=== PATIENT | female | born 1985 | race Caucasian/White ===

== ENCOUNTER → 2017-04-16 08:34 | Outpatient (CLI) | payer MEDICAID | END | disposition home or self-care (01) | LOC: D.US 08:34 | DX: R10.9 Unspecified abdominal pain (principal) ==

== ENCOUNTER → 2017-06-11 16:10 | Outpatient (CLI) | payer MEDICAID | END | disposition home or self-care (01) | LOC: D.RAD 16:10 | DX: M25.511 Pain in right shoulder (principal); M54.16 Radiculopathy, lumbar region ==

== ENCOUNTER → 2017-07-01 13:49 | Outpatient (CLI) | payer MEDICAID ==
[~2017-07-01 13:49] MED LIST: BACTRIM 400-801 TAB PO; BUSPAR 15 MG TA15 MG PO; CAMILA0.35 MG PO; FLUTICASONE PRO16 GM; HYDROCODON-ACE1 EAC7 PO; HYDROCODONE-APA1 TAB PO; HYDROXYZINE HCL50 MG PO; LEVOTHYROXINE50 MCG PO; LEVSIN/ANASP0.125 MG PO; NEURONTIN 300300 MG PO; NEXIUM40 MG PO; PROAIR HFA8.5 GM INH; REMERON30 MG PO; RISPERDAL4 MG PO; TOPAMAX100 MG PO; ULTRAM50 MG PO; ZANTAC300 MG PO; ZOFRAN8 MG PO; [UNRECOGNIZED DRUG - OTHER]; birth control PO
[2017-08-28 17:57] VITALS: BMI 35.8
== END | disposition home or self-care (01) ==
LOC: D.MRI 13:49
DX: S43.51XA Sprain of right acromioclavicular joint, initial encounter (principal)

== ENCOUNTER 2017-07-05 01:45 | Emergency (ER) | payer MEDICAID ==
[2017-07-05 03:09] LABS: APPEARANCE CLOUDY (CLEAR); COLOR YELLOW (YELLOW)
[2017-07-05 03:10] LABS: BILIRUBIN NEGATIVE (NEGATIVE); GLUCOSE NEGATIVE (NEGATIVE); KETONE NEGATIVE (NEGATIVE); NITRITE POSITIVE (NEGATIVE); PROTEIN 1+ mg/dL (NEGATIVE); UROBILINOGEN NORMAL (NORMAL)
[2017-07-05 03:16] LABS: AMORPHOUS SEDIMENT <1+ /lpf (NONE SEEN); BACTERIA MANY /hpf (NONE SEEN); EPITHELIAL CELLS NSEEN /hpf (0-5); GRANULAR CAST 0-5 /lpf (NONE SEEN); RED CELLS - URINE 0-5 /hpf (0-5)
[2017-08-27] MEDS ORDERED: FLUTICASONE PRO16 GM (14:43)
[2017-08-28] MEDS ORDERED: BACTRIM 400-801 TAB PO (08:19)
[2017-08-28] MEDS ORDERED: CAMILA0.35 MG PO (08:20)
[2017-08-28 17:57] VITALS: BMI 35.8
== END 2017-07-05 03:31 | disposition home or self-care (01) ==
LOC: D.ER 01:45
PROVIDERS: Family Medicine
DX: S39.012A Strain of muscle, fascia and tendon of lower back, initial encounter (principal); X58.XXXA Exposure to other specified factors, initial encounter; Y93.89 Activity, other specified; Y92.029 Unspecified place in mobile home as the place of occurrence of the external cause; N39.0 Urinary tract infection, site not specified

== ENCOUNTER 2017-07-12 20:54 | Emergency (ER) | payer MEDICAID ==
[2017-07-12 21:32] LABS: APPEARANCE CLEAR (CLEAR); BILIRUBIN NEGATIVE (NEGATIVE); COLOR YELLOW (YELLOW); GLUCOSE NEGATIVE (NEGATIVE); KETONE NEGATIVE (NEGATIVE); NITRITE POSITIVE (NEGATIVE); PROTEIN NEGATIVE (NEGATIVE); UROBILINOGEN NORMAL (NORMAL)
[2017-07-12 21:34] LABS: BACTERIA MODERATE /hpf (NONE SEEN); RED CELLS - URINE OCC /hpf (0-5); WHITE CELLS - URINE 0-5 /hpf (0-5)
[2017-08-27] MEDS ORDERED: FLUTICASONE PRO16 GM (14:43)
[2017-08-28] MEDS ORDERED: BACTRIM 400-801 TAB PO (08:19)
[2017-08-28] MEDS ORDERED: CAMILA0.35 MG PO (08:20)
[2017-08-28 17:57] VITALS: BMI 35.8
== END 2017-07-12 22:15 | disposition home or self-care (01) ==
LOC: D.ER 20:54
PROVIDERS: Emergency Medicine
DX: N39.0 Urinary tract infection, site not specified (principal); F17.200 Nicotine dependence, unspecified, uncomplicated

== ENCOUNTER → 2017-07-16 12:39 | Outpatient (CLI) | payer MEDICAID ==
[2017-08-28 17:57] VITALS: BMI 35.8
== END | disposition home or self-care (01) ==
LOC: D.MRI 12:39
DX: S43.51XA Sprain of right acromioclavicular joint, initial encounter (principal)

== ENCOUNTER → 2017-07-18 13:08 | Outpatient (CLI) | payer MEDICAID ==
[2017-08-28 17:57] VITALS: BMI 35.8
== END | disposition home or self-care (01) ==
LOC: D.US 13:08
DX: N18.3 Chronic kidney disease, stage 3 (moderate) (principal)

== ENCOUNTER → 2017-07-31 10:11 | Outpatient (CLI) | payer MEDICAID ==
[2017-08-28 17:57] VITALS: BMI 35.8
== END | disposition home or self-care (01) ==
LOC: D.CT 07-26 11:00
DX: N13.30 Unspecified hydronephrosis (principal)

== ENCOUNTER → 2017-08-02 17:13 | Outpatient (CLI) | payer MEDICAID ==
[2017-08-28 17:57] VITALS: BMI 35.8
== END | disposition home or self-care (01) ==
LOC: D.LABREF 17:13
DX: N39.0 Urinary tract infection, site not specified (principal)

== ENCOUNTER 2017-08-06 11:42 | Day surgery (SDC) | payer MEDICAID ==
[~2017-08-06] VITALS: Ht 162.6 cm; Wt 93.9 kg
[2017-08-06] MEDS ORDERED: HYDROXYZINE HCL50 MG PO (12:17)
[2017-08-06] MEDS ORDERED: ZANTAC300 MG PO (12:17)
[2017-08-06] MEDS ORDERED: REMERON30 MG PO (12:18)
[2017-08-06] MEDS ORDERED: ULTRAM50 MG PO (12:18)
[2017-08-06] MEDS ORDERED: ZOFRAN8 MG PO (12:18)
[2017-08-06] MEDS ORDERED: BUSPAR 15 MG TA15 MG PO (12:19)
[2017-08-06] MEDS ORDERED: RISPERDAL4 MG PO (12:19)
[2017-08-06] MEDS ORDERED: LEVOTHYROXINE50 MCG PO (12:19)
[2017-08-06] MEDS ORDERED: NEURONTIN 300300 MG PO (12:20)
[2017-08-06] MEDS ORDERED: LEVSIN/ANASP0.125 MG PO (12:20)
[2017-08-06] MEDS ORDERED: TOPAMAX100 MG PO (12:21)
[2017-08-06] MEDS ORDERED: NEXIUM40 MG PO (12:22)
[2017-08-06 12:40] VITALS: BP 109/67; Ht 162.6 cm; Wt 93.9 kg
[2017-08-06 12:56] LABS: HCG URINE NEGATIVE (NEGATIVE)
[2017-08-06 13:38] LABS: HEMATOCRIT 40.2 % (36.0-48.0); HEMOGLOBIN 13.4 g/dL (12-16); MCHC 33.3 g/dL (31.0-37.0); MCV 90.1 fL (80.0-100.0); MEAN PLATELET VOLUME 10.3 fL (7.4-10.4); RBC 4.46 10x6/uL (4.00-5.40); RDW 13.7 % (11.5-14.5)
--- NOTE | 2017-08-06 19:11 | NUR ---
IV DC WITH CATHER TIP INTACT
--- NOTE | 2017-08-07 14:29 | OP ---
PATIENT NAME: MARCUS MCALLISTER MEDICAL RECORD: [id number] :83 LOCATION:D.[facility] ADMISSION DATE: SURGEON: SKIP ROBLES MD DATE OF OPERATION: 08/06/2017 SURGEON: Skip Robles MD ANESTHESIA: General anesthesia by Dr. Silva. PREOPERATIVE DIAGNOSIS: Right ureteral obstruction by 7 mm mid ureteral stone, 10-mm right lower pole renal stone, and renal failure. PROCEDURES: Cystoscopy, right retrograde pyelogram, right ureteral stent insertion 6-Albanian x 24 cm without string attached. FINDINGS: Radiolucent stones. Stone position noted only by constriction of the dye column on retrograde pyelogram. ESTIMATED BLOOD LOSS: None. COMPLICATIONS: None. CLINICAL HISTORY: This is a 32-year-old female, who was referred by Dr. Edouard Durant, nephrology. When she was being investigated for renal failure, she was found on ultrasound to have right hydronephrosis. A CT scan of the abdomen and pelvis showed stones in the right kidney with a 7 mm stone in the right mid ureter causing hydronephrosis proximally. She comes today to have the right kidney decompressed by insertion of a ureteral stent. My plan had been to perform a percutaneous nephrolithotomy in the future to remove both the lower pole renal stone as well as the ureteral stone. Her creatinine is 1.32. She is not allergic to any medication. We gave her Ancef 2 grams IV neonatal nurse practitioner to the OR. DESCRIPTION OF PROCEDURE: The patient was given induction of general anesthesia. She was then placed in dorsal lithotomy position and prepped and draped. Fluoroscopy did not reveal any obvious radiodense stones. There was a possible radiodensity but when we performed the retrograde pyelogram, this radiodensity was not anywhere near the urinary system. Cystoscopy was performed using a 20-Albanian cystoscope with 30-degree lens. She has single ureteral orifices. No bladder tumors were seen. An open-ended 5-Albanian ureteral catheter was inserted into the urethra and diluted contrast was used to perform a retrograde pyelogram. At about the mid ureteral level, we could see distal to the narrow point in the ureter strong column of contrast. Proximal to this was very diluted column of contrast and hydronephrotic ureter and kidney. The stone itself could not be seen. Also, the stone in the kidney could not be seen on fluoroscopy. This leads me to suspect that it may be a uric acid as this is characteristic of uric acid stones. A Sensor wire was placed through the lumen of the ureteral catheter and up into the renal pelvis. The ureteral catheter was then removed entirely. Over the wire, we inserted a 6-Albanian x 24 cm ureteral stent. The string on the distal end of the stent has been removed. Once the stent was in correct position, we withdrew the wire to allow the proximal end to coil. The wire was then removed entirely. The distal end of the stent was pushed into the bladder using the pusher. The bladder was then emptied through the cystoscope. Because she may have uric acid stones, I am going to start her on urinary alkalinization using potassium citrate 10 mEq p.o. t.i.d. She will come to my office later this week to have her urine pH check. OPERATIVE REPORT [id number] MARCUS MCALLISTER Ideally we want the urine pH to be above 6.5 in order to dissolve uric acid stones. Also, I have given her a prescription for tamsulosin 0.4 mg p.o. at bedtime times 30 tablets, to help alleviate any ureteral spasms from the placement of the stent. Finally, she has a script for [place] 5/325, 30 tablets with no refills. TRANSINT:[id number] Voice Confirmation ID: [id number] DOCUMENT ID: [id number] SKIP ROBLES MD at 1429 CC: [id number] DICTATION DATE: 08/06/171813 COMMUNITY SERVICE REPRESENTATIVE: 08/06/172109 [facility] 08/06/17 [id number] [place] [address]
[2017-08-27] MEDS ORDERED: FLUTICASONE PRO16 GM (14:43)
[2017-08-28] MEDS ORDERED: BACTRIM 400-801 TAB PO (08:19)
[2017-08-28] MEDS ORDERED: CAMILA0.35 MG PO (08:20)
== END 2017-08-06 19:36 | disposition home or self-care (01) ==
LOC: D.OPS 11:42 → D.PAN 14:15 → D.OPS 14:15
PROVIDERS: Anesthesiology; Urology
DX: N20.2 Calculus of kidney with calculus of ureter (principal); F17.200 Nicotine dependence, unspecified, uncomplicated; E03.9 Hypothyroidism, unspecified; J45.909 Unspecified asthma, uncomplicated; K21.9 Gastro-esophageal reflux disease without esophagitis; Z01.812 Encounter for preprocedural laboratory examination

== ENCOUNTER 2017-08-08 08:06 | Day surgery (SDC) | payer MEDICAID ==
[~2017-08-08] VITALS: Ht 165.1 cm; Wt 93.0 kg
[~2017-08-08 08:06] MED LIST changes: -BACTRIM 400-801 TAB PO; -CAMILA0.35 MG PO; -FLUTICASONE PRO16 GM; -HYDROCODON-ACE1 EAC7 PO; -HYDROCODONE-APA1 TAB PO; -PROAIR HFA8.5 GM INH; -[UNRECOGNIZED DRUG - OTHER]; -birth control PO
[2017-08-08] MEDS ORDERED: HYDROCODON-ACE1 EAC7 PO (09:07)
[2017-08-08] MEDS ORDERED: [UNRECOGNIZED DRUG - OTHER] (09:20)
[2017-08-08] MEDS ORDERED: birth control PO (09:21)
[2017-08-08] MEDS ORDERED: PROAIR HFA8.5 GM INH (09:27)
[2017-08-08 09:28] VITALS: BP 107/74; Ht 165.1 cm; Wt 93.0 kg
[2017-08-08 09:43] LABS: HCG URINE NEGATIVE (NEGATIVE)
[2017-08-08] MEDS ORDERED: HYDROCODONE-APA1 TAB PO (13:51)
--- NOTE | 2017-08-08 15:32 | NUR ---
1530 DISCHARGE INSTRUCTIONS COMPLETE. PT HAS NO QUESTIONS OR CONCERNS AT THIS TIME. NORCO PRESCRIPTION GIVEN. PT ESCORTED OUT BY VOLUNTEER.
[2017-08-27] MEDS ORDERED: FLUTICASONE PRO16 GM (14:43)
[2017-08-28] MEDS ORDERED: BACTRIM 400-801 TAB PO (08:19)
[2017-08-28] MEDS ORDERED: CAMILA0.35 MG PO (08:20)
--- NOTE | 2017-09-09 17:58 | OP ---
PATIENT NAME: MARCUS MCALLISTER MEDICAL RECORD: [id number] :83 LOCATION:[facility] ADMISSION DATE: SURGEON: LEXIE ELIZONDO MD DATE OF OPERATION: 08/08/2017 DATE OF OPERATION: PREOPERATIVE DIAGNOSES: Right shoulder impingement syndrome with acromioclavicular arthritis and rotator cuff tear. POSTOPERATIVE DIAGNOSES: Right shoulder impingement syndrome with acromioclavicular arthritis and rotator cuff tear. PROCEDURES: 1. Arthroscopic rotator cuff repair of the right shoulder. 2. Arthroscopic distal clavicle excision, right shoulder - 1 cm through separate incision. 3. Arthroscopic subacromial decompression, acromioplasty and bursectomy. SURGEON: Lexie Elizondo MD ANESTHESIA: General. INTRAOPERATIVE COMPLICATIONS: None. SUMMARY OF PATHOLOGIC FINDINGS: As photographed intraoperatively, the patient had a full thickness rotator cuff tear at the anterior aspect of the supraspinatus tendinous footprint. OPERATIVE SUMMARY IN DETAIL: After obtaining the appropriate preoperative orthopedic surgery consent as well as anesthetic consultation, evaluation and clearance, the patient was brought to the operating room and was placed on the operating table in supine position. After general laryngeal mask airway was administered, the patient was placed in a left lateral decubitus position. All pressure points were well padded to include down leg peroneal nerve pad as well as axillary roll. The patient was held firmly to the operating table using the vacuum pack suction system. Right upper extremity and shoulder were prepped and draped in routine sterile fashion. The arm was held in the [employer] traction boom at 30 degrees of forward flexion, 30 degrees of abduction, 10 pounds of traction laterally. Arthroscopy was established in the glenohumeral joint from posterior portal. Anterior portal was established in the anterior safe interval. Diagnostic arthroscopy did reveal the patient to have a rotator cuff tear as above. Transrotator cuff portal was created for debridement of the nonviable rotator cuff fibers and to begin decortication of the supraspinatus tendinous footprint. The attention was then turned to the subacromial space. [place] tissue ablation system was utilized to denude the undersurface of the acromion of all soft tissue elements and released the coracoacromial ligament. A 5-0 barrel bur was used to perform acromioplasty at the level of acromioclavicular joint and then through a separate arthroscopic portal anteriorly, distal clavicle excision was done for 1 cm and the osteophytes were taken down from the medial edge of the acromion. Lastly, after further decortication of the supraspinatus tendinous footprint, a single #2 FiberTape was placed in an inverted mattress system and then anchored laterally with a 5.5 SwiveLock from [employer]. Having completed this, arthroscopy portals were closed in routine interrupted fashion using 4-0 Prolene. Sterile dressings were OPERATIVE REPORT [id number] MARCUS MCALLISTER applied. The patient was awakened, taken to recovery room in stable condition. All final needle and sponge counts were correct. TRANSINT:[id number] Voice Confirmation ID: [id number] DOCUMENT ID: [id number] MIKHAIL INTERIANO, LEXIE CURIEL at 1758 CC: [id number] DICTATION DATE: 09/09/17 1317 [employer] TECHNICIAN: 09/09/17 1416 [facility] 08/08/17 [id number] [place] [address]
== END 2017-08-08 15:33 | disposition home or self-care (01) ==
LOC: D.OPS 08:06 → D.PAN 11:30 → D.OPS 11:30 → D.PAN 12:20 → D.OPS 13:30 → D.PAN 13:30 → D.OPS 15:33
PROVIDERS: Orthopaedic Surgery
DX: M75.101 Unspecified rotator cuff tear or rupture of right shoulder, not specified as traumatic (principal); F17.200 Nicotine dependence, unspecified, uncomplicated; J45.909 Unspecified asthma, uncomplicated; I10 Essential (primary) hypertension; E03.9 Hypothyroidism, unspecified; K21.9 Gastro-esophageal reflux disease without esophagitis; M19.011 Primary osteoarthritis, right shoulder; M25.811 Other specified joint disorders, right shoulder; Z01.812 Encounter for preprocedural laboratory examination

== ENCOUNTER → 2017-08-12 17:51 | Outpatient (CLI) | payer MEDICAID ==
[2017-08-08 09:28] VITALS: BMI 34.1
[~2017-08-12 17:51] MED LIST changes: +BACTRIM 400-801 TAB PO; +CAMILA0.35 MG PO; +FLUTICASONE PRO16 GM; +HYDROCODON-ACE1 EAC7 PO; +HYDROCODONE-APA1 TAB PO; +PROAIR HFA8.5 GM INH; +[UNRECOGNIZED DRUG - OTHER]; +birth control PO
== END | disposition home or self-care (01) ==
LOC: D.LABREF 17:51
DX: N39.0 Urinary tract infection, site not specified (principal)

== ENCOUNTER → 2017-08-26 12:08 | Outpatient (CLI) | payer MEDICAID ==
[2017-08-08 09:28] VITALS: BMI 34.1
== END | disposition home or self-care (01) ==
LOC: D.CT 12:08
DX: N20.0 Calculus of kidney (principal)

== ENCOUNTER 2017-08-28 08:34 | Day surgery (SDC) | payer MEDICAID ==
[2017-08-27 15:46] LABS: HEMATOCRIT 41.6 % (36.0-48.0); HEMOGLOBIN 13.8 g/dL (12-16); MCH 29.8 pg (26.0-34.0); MCHC 33.2 g/dL (31.0-37.0); MCV 89.8 fL (80.0-100.0); MEAN PLATELET VOLUME 9.7 fL (7.4-10.4); RBC 4.63 10x6/uL (4.00-5.40); RDW 14.3 % (11.5-14.5); WBC 7.2 10x3/uL (4.8-10.8)
[~2017-08-28] VITALS: Ht 165.1 cm; Wt 97.7 kg
--- NOTE | ~2017-08-28 | HEMODYNAMI ---
PATIENT:MARCUS MCALLISTER MEDICAL RECORD: [id number] : 83 LOCATION:[facility] ADMISSION DATE: 08/28/17 Generatedon:08/28/201710:45 Patient name: MARCUS MCALLISTER Patient #: [id number] SSN: DO B: 1985 Date of study: 08/28/2017 Page: Of Hemodynamic Procedure Report Patient Data Patient Demographics Procedure consent was obtained First Name: MARCUS Gender: Female Last Name: ESVIN : 1985 [facility] Initial: JESSICA Age: 32 year(s) Patient #: [id number] Race: Unknown Additional ID: [id number] Contact details [address]: [address] [place] [address] State: [place] City: [place] Zip code: [address] Admission Admission Data Admission Date: 08/28/2017 Admission Time: 8:34 Procedure Procedure Types Cath Procedure Peripheral Cath Diagnostic Procedure Miscellaneous Procedure Description Procedure Date Procedure Date: 08/28/2017 Procedure Start Time: 9:25 Procedure Staff Name Function Gino Lackey MD Performing Physician Agustín Multani RT Monitor Liza Maurice RT Scrub Sarah Cates RN Nurse Procedure Data Cath Procedure Fluoroscopy Diagnostic fluoroscopy Total fluoroscopy Time: time: 20.6 min 20.6 min Diagnostic fluoroscopy Total fluoroscopy dose: dose: 1247 mGy 1247 mGy Contrast Material Contrast Material Type Amount (ml) Isovue 300 20 Procedure Medications Medication Administration Route Dosage Heparin Flush Bag added to field 1 bags (1000units/500ml NS) Lidocaine 1% added to field 20 Versed I.V. 1 mg Fentanyl I.V. 50 mcg Versed I.V. 1 mg Fentanyl I.V. 50 mcg Versed I.V. 1 mg Fentanyl I.V. 50 mcg Versed I.V. 1 mg Fentanyl I.V. 50 mcg Versed I.V. 1 mg Fentanyl I.V. 50 mcg Versed I.V. 1 mg Fentanyl I.V. 50 mcg Versed I.V. 2 mg Hemodynamics Rest Heart Rate: 81 (bpm) Snapshots Pre Cath Intra NCS Post Cath Vital Signs Time Heart Resp SPO2 etCO2 NIBP (mmHg) Rhythm Pain Sedation Rate (ipm) (%) (mmHg) Status Level (bpm) 9:07:34 83 11 98 34.8 No Cuff NSR 0 (11) 10(A) , No pain 9:11:34 86 14 98 34.8 No Cuff NSR 0 (11) 10(A) , No pain 9:15:33 82 11 97 35.5 No Cuff NSR 0 (11) 10(A) , No pain 9:19:53 82 11 97 38.6 128/81(107) NSR 0 (11) 10(A) , No pain 9:24:03 82 12 98 37.1 131/86(103) NSR 0 (11) 10(A) , No pain 9:28:11 90 10 97 37.8 133/84(113) NSR 0 (11) 10(A) , No pain 9:32:23 90 12 97 37.8 133/85(99) NSR 0 (11) 10(A) , No pain 9:36:31 97 7 96 37.1 135/94(115) NSR 0 (11) 10(A) , No pain 9:41:30 101 5 97 37.8 Measuring NSR 0 (11) 10(A) , No pain 9:42:33 102 7 97 39.3 130/103(125) NSR 0 (11) 10(A) , No pain 9:46:41 96 5 95 36.3 129/106(121) NSR 0 (11) 10(A) , No pain 9:51:40 105 6 96 45.4 Measuring NSR 0 (11) 10(A) , No pain 9:53:04 98 6 97 45.4 Time NSR 0 (11) 10(A) Exceeded , No pain 9:55:18 107 6 97 42.4 132/99(127) NSR 0 (11) 10(A) , No pain 10:00:17 115 5 95 47.7 Measuring NSR 0 (11) 10(A) , No pain 10:00:21 109 5 95 47.7 148/132(143) NSR 0 (11) 10(A) , No pain 10:02:42 114 5 95 46.1 141/128(136) NSR 0 (11) 10(A) , No pain 10:05:16 107 7 97 43.1 139/109(115) NSR 0 (11) 10(A) , No pain 10:09:22 107 8 97 42.4 133/108(127) NSR 0 (11) 10(A) , No pain 10:14:20 105 9 97 42.3 Measuring NSR 0 (11) 10(A) , No pain 10:14:25 103 9 97 42.3 144/118(141) NSR 0 (11) 10(A) , No pain 10:18:34 103 6 98 41.6 140/101(122) NSR 0 (11) 10(A) , No pain 10:23:33 102 12 98 39.3 Measuring NSR 0 (11) 10(A) , No pain 10:23:56 104 11 98 35.5 156/112(144) NSR 0 (11) 10(A) , No pain 10:28:06 98 10 99 40.8 149/112(129) NSR 0 (11) 10(A) , No pain 10:32:16 99 16 41.6 151/103(115) NSR 0 (11) 10(A) , No pain 10:36:15 0 No Cuff NSR 0 (11) 10(A) , No pain 10:40:15 0 No Cuff NSR 0 (11) 10(A) , No pain Medications Time Medication Route Dose Verified Delivered Reason Notes Effect iveness by by 9:19:17 Heparin Flush added 1 Sarah Sarah Bag to bags Darryn Cates RN (1000units/500ml field RAMOS NS) 9:19:31 Lidocaine 1% added 20ml Sarah Gino to vial MD field RACHEL Reaves 9:25:51 Versed I.V. 1 mg Gino Smith for Darryn Lackey RN sedation 9:26:02 Fentanyl I.V. 50 Gino Sarah for mcg Darryn Lackey RN sedation 9:28:15 Versed I.V. 1 mg Gino Sarah for Darryn Lackey RN sedation 9:28:22 Fentanyl I.V. 50 Gino Sarah for mcg Darryn Lackey RN sedation 9:31:22 Versed I.V. 1 mg Gino Sarah for Burda, Darryn RN sedation 9:31:32 Fentanyl I.V. 50 Gino Sarah for mcg Burda, Darryn RN sedation 9:38:08 Versed I.V. 1 mg Gino Sarah for Burda, Darryn RN sedation 9:38:18 Fentanyl I.V. 50 Gino Sarah for mcg Burda, Darryn RN sedation 9:44:17 Versed I.V. 1 mg Gino Sarah for Burda, Darryn RN sedation 9:44:25 Fentanyl I.V. 50 Gino Sarah for mcg Burda, Darryn RN sedation 9:54:39 Versed I.V. 1 mg Gino Sarah for Burda, Darryn RN sedation 9:54:47 Fentanyl I.V. 50 Gino Sarah for mcg Burda, Darryn RN sedation 10:10:10 Versed I.V. 2 mg Gino Sarah for Burda, Darryn RN sedation Procedure Log Time Note 8:47:44 Agustín Multani RT (R) (CV) sent for patient. Start room use. 8:50:35 Time tracking: Regular hours 8:50:41 Plan of Care:Hemodynamics will remain stable., Cardiac rhythm will remain stable., Comfort level will be maintained., Respiratory function will remain adequate., Patient/ family verbilizes understanding of procedure., Procedure tolerated without complication., Recovers from procedure without complications.. 8:50:49 Patient received from Outpatients to IR Alert and oriented. Tansferred to table in Prone position. 8:50:50 Correct patient and procedure confirmed by team. 8:50:52 Signed procedure consent form obtained from patient. 8:50:53 ECG and BP/O2 sat monitors applied to patient. 8:50:54 Full Disclosure recording started 8:50:56 - 8:50:59 H&P Date Dictated: 08/28/2017 Within 30 days and on chart.. 8:51:00 Pre-procedure instructions explained to patient. 8:51:00 Pre-op teaching completed and patient verbalized understanding. 8:51:02 Family in waiting room. 8:51:06 Patient NPO since Midnight. 8:51:10 Is patient on blood thinner?No 8:51:11 Patient diabetic? No. 8:51:12 - 8:51:13 ----Pre-sedation anethsthesia assessment.---- 8:51:19 Snore? Yes 8:52:04 Sleep apnea? No 8:52:06 Deviated septum? No 8:52:09 Opens mouth fully? Yes 8:52:11 Sticks out tongue? Yes 8:52:16 Airway obstruction? No ? 8:52:18 Dentures? No ? 8:52:33 Patient pain scale 0/10 no pain. 8:52:39 IV patent on arrival in left forearm with 0.9% NaCl at O. 8:52:41 Sharps counted by scrub and verified by R.N. 8:52:41 Alarms reviewed by R. N. 8:52:48 Right abdomen area was prepped with chlora-prep and draped in sterile fashion 8:53:07 Use device set IR Diagnostic 8:53:16 Bag Decanter (2002S) opened to sterile field. 8:53:16 Sterile Angiographic Pack opened to sterile field. 8:53:25 KIT, INTRODUCER ACCUSTICK II W/C opened to sterile field. 9:06:44 Vital chart was started 9:06:46 Baseline sample Acquired. 9:19:17 Heparin Flush Bag (1000units/500ml NS) 1 bags added to field was administered by Sarah Cates RN; ; 9:19:31 Lidocaine 1% 20ml vial added to field was administered by Gino Lackey MD; ; 9:23:08 Physician arrived 9:23:08 Final Timeout: patient, procedure, and site verified with staff and physician. All members of the team are in agreement. 9:23:09 --------ALL STOP TIME OUT------ 9:23:16 Sedation plan: IV Moderate Sedation Medication:Versed, Fentanyl 9:25:17 Procedure started. 9:25:22 Local anesthetic to Abdominal area with Lidocaine 1% by Agustín GARRETT (R) ().INITIAL ACCESS ONLY 9:25:51 Versed 1 mg I.V. was administered by Sarah Cates RN; for sedation; 9:26:02 Fentanyl 50 mcg I.V. was administered by Sarah Cates RN; for sedation ; 9:28:15 Versed 1 mg I.V. was administered by Sarah Cates RN; for sedation; 9:28:22 Fentanyl 50 mcg I.V. was administered by Sarah Cates RN; for sedation ; 9:28:23 CHIBA 22 X 15 needle opened to sterile field. 9:31:22 Versed 1 mg I.V. was administered by Sarah Cates RN; for sedation; 9:31:32 Fentanyl 50 mcg I.V. was administered by Sarah Cates RN; for sedation ; 9:38:08 Versed 1 mg I.V. was administered by Saarh Cates RN; for sedation; 9:38:18 Fentanyl 50 mcg I.V. was administered by Sarah Cates RN; for sedation ; 9:43:02 KIT, INTRODUCER ACCUSTICK II W/C opened to sterile field. 9:44:17 Versed 1 mg I.V. was administered by Sarah Cates RN; for sedation; 9:44:25 Fentanyl 50 mcg I.V. was administered by Sarah Cates RN; for sedation ; 9:54:39 Versed 1 mg I.V. was administered by Sarah Cates RN; for sedation; 9:54:47 Fentanyl 50 mcg I.V. was administered by Sarah Cates RN; for sedation ; 9:55:27 CHIBA 22 X 15 needle opened to sterile field. 10:00:34 EV3 NITINOL .018 80CM guide wire opened to sterile field. 10:10:10 Versed 2 mg I.V. was administered by Sarah Cates RN; for sedation; 10:10:19 CHIBA 22 X 15 needle opened to sterile field. 10:15:20 CHIBA 22 X 15 needle opened to sterile field. 10:15:21 EV3 NITINOL .018 80CM guide wire opened to sterile field. 10:19:47 Terumo Angled SS 180cm glide wire opened to sterile field. 10:22:09 Terumo 5FR ANGLED 65CM glide catheter opened to sterile field. 10:25:08 Procedure ended.(Physican Out) 10:28:03 Fluoroscopy time 20.60 minutes. 10:28:12 Fluoroscopy dose: 1247 mGy 10:28:12 Flurop Dose total: 1247 10:28:14 Sharps counted by scrub and verified by R.N. 10:28:17 Insertion/operative site no bleeding no hematoma. 10:28:22 Post-op/insertion site Right Abdominal area dressed using a 4 x 4 and Tegaderm. 10:28:29 Post Abdominal area:stable 10:43:56 Contrast amount:Isovue 300 20ml. 10:43:58 Procedure and supply charges have been captured, reviewed, submitted an d are correct. 10:44:01 Report given to Outpatients. 10:44:05 Patient transfered to Outpatients with Stretcher. 10:45:52 Vital chart was stopped Device Usage Item Name Manufacture Quantity Catalog Hospital Part Current Minimal Lot# / Number Charge Number Stock Stock Serial# Code Bag Decanter Microtek 1 [id number] 5 () [employer] Sterile Cardinal [address] [id number] [id number] 5 Angiographic Health Pack [facility] 2 [id number] 196856 204957 [id number] 5 INTRODUCER Scientific ACCUSTICK II W/C CHIBA 22 X [employer] 4 [id number] [id number] 5 [id number] 15 needle [id number] 6802550 EV3 NITINOL Ev3 2 [id number] 447988 865997 5 [id number] .018 80CM [id number] guide wire Terumo Terumo 1 [id number] 579940 530196 5 Angled SS 180cm glide wire Terumo 5FR Terumo 1 [id number] [id number] 5 ANGLED 65CM glide catheter Signature Audit [place] Stage Time Signature Unsigned Intra-Procedure 08/28/2017 Agustín 10:45:48 AM Shuffield RT (R) (CV) Signatures Monitor : Agustín Signature : Shuffield RT Date : Time : [address] [place] [address]
[2017-08-28 08:23] VITALS: BP 112/59; BMI 35.8
[2017-08-28 08:35] LABS: BASOPHILS 0.8 % (0-2); EOSINOPHILS 3.8 % (0-7); HEMATOCRIT 40.8 % (36.0-48.0); HEMOGLOBIN 13.5 g/dL (12-16); IMMATURE GRANULOCYTES 0.3 % (0-5); LYMPHOCYTES 33.8 % (15-50); MCH 29.7 pg (26.0-34.0); MCHC 33.1 g/dL (31.0-37.0); MCV 89.7 fL (80.0-100.0); MEAN PLATELET VOLUME 10.1 fL (7.4-10.4); MONOCYTES 8.1 % (2-11); NEUTROPHILS 53.2 % (40-80); PLATELET COUNT 219 10x3/uL (130-400); RBC 4.55 10x6/uL (4.00-5.40); RDW 14.2 % (11.5-14.5); WBC 6.6 10x3/uL (4.8-10.8)
[2017-08-28 08:40] LABS: HCG URINE NEGATIVE (NEGATIVE)
[2017-08-28 08:51] LABS: ANION GAP 15.8 mmol/L (8-16); CALCIUM 8.7 mg/dL (8.5-10.1); CARBON DIOXIDE 21.9 mmol/L (21.0-32.0); CREATININE - SERUM 1.3 mg/dL (0.6-1.3); POTASSIUM - SERUM 3.7 mmol/L (3.5-5.1)
[2017-08-28 08:52] LABS: INR 0.95 (0.85-1.17); PROTIME 12.3 SECONDS (11.6-15.0)
[2017-08-28 08:53] LABS: APTT 27.9 SECONDS (22.8-39.4)
[2017-08-28 17:50] VITALS: BP 137/77
[2017-08-28 17:57] VITALS: BP 137/78; Ht 165.1 cm; Wt 97.7 kg
--- NOTE | 2017-08-28 18:11 | NUR ---
PT AOX4 RESP EVEN AND NONLABORED PT DENIES NEEDS AT THIS TIME IV TO LEFT FOREARM PATENT AND INTACT AT THIS TIME SRX2 BED AT LOWEST SETTINGS CALL LIGHT WITHIN REACH WILL CONTINUE TO MONITOR
--- NOTE | 2017-08-28 19:10 | NUR ---
RECIEVED SHIFT REPORT. PT IS LYING IN BED. ALERT AND ORIENTED AND ABLE TO VERBALIZE NEEDS. IV IS PATENT AND FLUIDS AT KVO. NEPHROSTOMY TUBE PATENT AND CONNECTED TO DRAINAGE. PT IS AMBULATORY WITH ASSISTANCE. PT STATES PAIN IS 8/10. MOTHER IS AT THIS BEDSIDE. NO NEEDS ARE VERBALIZED AT THIS TIME. WILL CONTINUE TO MONITOR. SIDE RAILS ARE UP X 2. BED IS IN LOWEST POSITION. CALL LIGHT IS WITHIN REACH.
--- NOTE | 2017-08-28 20:47 | NUR ---
SHIFT ASSESSMENT COMPLETED. NIGHT MEDS GIVEN WITH NO PROBLEMS. NO NEEDS ARE VOICED. WILL MONITOR. SIDE RAILS X 2. BED LOW. CALL LIGHT IN REACH.
[2017-08-29] VITALS: BP 129/68
[2017-08-29 04:00] VITALS: BP 131/75
--- NOTE | 2017-08-29 07:50 | NUR ---
ASSESSMENT COMPLETE. IV TO L FA PATENT. NS INFUSING AT KVO. R NEPHROSTOMY TUBE TO DHALIWAL DRAINAGE BAG. O2 1.5L NC IN USE. FAMILY AT BEDSIDE. DENIES ANY NEEDS AT THIS TIME.
[2017-08-29 08:03] VITALS: BP 110/71
--- NOTE | 2017-08-29 08:46 | OP ---
PATIENT NAME: MARCUS MCALLISTER MEDICAL RECORD: [id number] :83 LOCATION:D[facility] ADMISSION DATE: SURGEON: SKIP ROBLES MD DATE OF OPERATION: 08/28/2017 DATE OF SURGERY: 08/28/2017 SURGEON: Skip Robles MD ANESTHESIA: General anesthesia by Dr. Silva. PREOPERATIVE DIAGNOSIS: Right renal stones, 12 mm plus 7 mm. POSTOPERATIVE DIAGNOSIS: Right renal stone, 7 mm. SPECIMENS: Right renal stone 7 mm. PROCEDURES: Right percutaneous nephrolithotomy, cystoscopy, and right ureteral stent removal. FINDINGS: Radiolucent stone. Only a 7 mm stone was seen. The 12 mm stone seen on CT scan was not present. Also of note, patient was febrile prior to the procedure with an esophageal temperature of 102 Fahrenheit. BLOOD LOSS: Minimal. CLINICAL HISTORY: This is a 32-year-old female, who is being investigated for renal failure. She has a creatinine of 1.32. She had an ultrasound performed at an outside institution which showed right-sided hydroureteronephrosis due to a stone in the right mid ureter. On 08/06/2017, I brought her to the operating room to insert a right ureteral stent. At that time, I could not visualize the stone. The stone was radiolucent. The stone was seen as a filling defect when a retrograde pyelogram was performed. At that time, a right ureteral stent was inserted. I had her started on alkalinization of the urine with potassium citrate on the assumption that she had a uric acid stone. When we performed a CT scan on 08/26/2017, there was reported to be the 7 mm stone in the kidney, but also a 12-mm stone in the kidney. Due to the potentially large size of the stone burden, we elected to treat her with a right percutaneous nephrolithotomy. She is not allergic to any medications and she was given Ancef 2 grams IV auto self service station attendant to the OR. Earlier this morning, she went to the interventional radiology suite and they inserted a right nephroureteral catheter for access. This catheter went into the bladder. As she was being brought to the operating room, she was noted to be febrile. I suspected that this may have been from the interventional radiology manipulation of the kidney with an infected stone causing fever. Therefore, we need to get rid of her stone burden as quickly as possible. I decided to proceed with this surgery. DESCRIPTION OF PROCEDURE: The patient was given induction of general anesthesia while she was supine on her stretcher. We then put her legs in frog-leg position. A rigid cystoscope was placed after prepping the vaginal area. The old ureteral stent was noted and grasping forceps were used to entirely remove the old ureteral stent which was now encrusted with stone material. The distal end of the nephroureteral stent was seen. This was also taken with the grasping forceps and pulled out of the urethra. This allowed me to clamp my access wire to prevent loss of access. At this point, the patient was turned into prone OPERATIVE REPORT [id number] MARCUS MCALLISTER position on the Derrick frame. She was then prepped and draped again. The nephroureteral access was entered into with an Amplatz Super Stiff wire. Once the distal end of the wire was seen coming out of the distal end of the nephroureteral access catheter, this wire was clamped in the region between the legs with a hemostat. This allowed me to completely remove the nephroureteral catheter not risk losing the access wire. A #11 blade was used to make a small incision on either side of the wire so that our working sheath would fit. A dual-lumen catheter was then introduced and put down into the proximal right ureter. Through the second lumen, a safety wire of Sensor wire was placed down into the bladder. Once the wires were in place, the dual lumen catheter was completely removed, leaving the [address] The Sensor wire was clamped off to the drape as a safety wire. We worked over the Super Stiff wire. The NephroMax access tract dilation balloon was then introduced and the balloon was inflated with 20 atmospheres of pressure. The working sheath 30-Central African internal circumference was then placed down over the balloon into the renal pelvis. The balloon was then deflated and completely removed. Putting the nephroscope in, we encountered initially blood clots from our access procedure. The Montserratian Lithoclast ultrasonic mode was used to completely remove the blood clots. At this point, at the UP junction, I noted the 7 mm stone. This was completely removed using grasping forceps and sent to pathology. There was also a 1-2 mm speck of stone which came with it, which was also sent to pathology. I then looked extensively in the proximal ureter as well as in all of the renal calices that I could access with the nephroscope and I could not find any 12-mm stone. Also, on fluoroscopy, we could not see any radiodense stones. After looking around extensively, I decided that we probably do not have a 12-mm stone to deal with. The patient is still febrile, we decided not to prolong this procedure any longer than necessary. She had been given Tylenol suppository also once she had been turned into the prone position. At this point, the scope was removed. Over the Amplatz Super Stiff wire, we introduced the 24-Central African Malecot nephrostomy tube. Once the catheter was in correct position, the stylet of the Malecot catheter was removed allowing the wings to expand. The working sheath was then completely removed. The safety wire was completely removed. The Amplatz Super Stiff wire was completely removed by pulling on the hemostat and thus removing it in an antegrade fashion completely. The Malecot nephrostomy drain was sutured to the skin using a 2-0 nylon. Dressings of 4 x 4 gauze and an ABD pad were applied and the nephrostomy tube was put to bag drainage. The patient was turned back into supine position and extubated. The Grajeda catheter was removed. The patient will be kept in hospital for 23-hour observation. TRANSINT:[id number] Voice Confirmation ID: [id number] DOCUMENT ID: [id number] SKIP ROBLES MD at 0846 CC: [id number] DICTATION DATE: 08/28/17 165 HEAD COUNSELOR: 08/28/17 1847 [facility] [address] [place] [address]
--- NOTE | 2017-08-29 08:55 | NUR ---
COMPLAINING OF PAIN. NORCO GIVEN.
--- NOTE | 2017-08-29 11:20 | NUR ---
DISCHARGE TEACHING GIVEN TO PATIENT AND MOTHER. IV REMOVED. CATHETER TIP INTACT. DRESSING APPLIED. SCRIPT FOR NORCO GIVEN TO PATIENT. MOTHER DEMONSTRATED HOW TO EMPTY NEPHROSTOMY DRAINAGE BAG AND MEASURE. VOICED UNDERSTANDING. SHEET SENT WITH PATIENT TO RECORD OUTPUT AND 2 URINALS TO MEASURE OUTPUT TO TAKE TO DOCTOR'S APPOINTMENT ON SATURDAY. DRESSING AROUND NEPHROSTOMY TUBE C/D/I. PATIENT INSTRUCTED TO KEEP DRESSING CLEAN AND DRY.
--- NOTE | 2017-08-29 11:50 | NUR ---
DC'D HOME WITH MOTHER. ESCORTED TO VEHICLE BY VOLUNTEER VIA WC WITH BELONGINGS.
[2017-09-06 11:17] LABS: CALCULI - CALCIUM PHOSPHATE 90 % (()); CALCULI - COLOR Tan (())
== END 2017-08-29 11:50 | disposition home or self-care (01) ==
LOC: D.MS 08:34 → D.OPS 08:34 → D.MS 16:37 → D.OPS 08-29 11:50
PROVIDERS: Anesthesiology; General Practice; Urology
DX: N20.2 Calculus of kidney with calculus of ureter (principal); F17.200 Nicotine dependence, unspecified, uncomplicated; J45.909 Unspecified asthma, uncomplicated; E03.9 Hypothyroidism, unspecified; K21.9 Gastro-esophageal reflux disease without esophagitis; E66.9 Obesity, unspecified; Z01.812 Encounter for preprocedural laboratory examination